=== PATIENT | male | born 1955 ===

== ENCOUNTER → 2021-09-05 10:06 | Outpatient (CLI) | payer OTHER, SELFPAY ==
[2021-09-05 13:11] LABS: COVID19 -Nasal RAPID Negative (Negative)
== END ==
PROVIDERS: Visit Provider Family Medicine Sleep Medicine
DX: Z20.822 Contact with and (suspected) exposure to COVID-19 (principal)
CPT/HCPCS: 87635; C9803

== ENCOUNTER → 2021-09-08 14:53 | Outpatient (CLI) | payer OTHER, SELFPAY ==
--- NOTE | 2021-09-08 | DI.NM.S_ITS ---
PROCEDURE: NM EXERCISE TREADMILL NON NUC COMPARISON: None. INDICATIONS: Other persistent atrial fibrillation FINDINGS: The patient exercised for 7 minutes and 34 seconds reaching 10.1 METs. Patient had atrial fibrillation with ventricular rates in the 90s at rest. 110% of maximum predicted heart rate reached and appropriate BP response to exercise. With exercise, there was no chest pain and no ischemic ECG changes. IMPRESSION: Low risk, normal treadmill ECG only stress test without angina and no ST changes. Above average exercise capacity (10.1 METs). Dictated by: Ezra Cazares MD on 09/09/2021 at 15:50 Approved by: Ezra Cazares MD on 09/09/2021 at 15:52
== END ==
PROVIDERS: Referring Provider Physician Assistant; Visit Provider Physician Assistant
DX: I48.19 Other persistent atrial fibrillation (principal)
CPT/HCPCS: 93017

== ENCOUNTER 2025-04-14 14:32 | Inpatient (IN) | payer OTHER, SELFPAY ==
[2025-04-14] VITALS (20 sets, daily range): BP systolic 103–171; BP diastolic 64–115; PULSE 77–125; RESP 6–42; TEMP 36.9; O2SAT 74–98; BMI 26.3
--- NOTE | 2025-04-14 14:38 | EKG_ITS ---
[address] [address] Test Date: 2025-04-14 Pat Name: Henry Barboza Department: [facility] Room: Gender: Male Purler: ALEKSANDR : 1955 Requested By: Order Number: [id number] Reading MD: Jason Neely Measurements Intervals [place] Rate: 120 P: [place]: QRS: -6 QRSD: 102 T: -15 QT: 332 QTc: 469 Interpretive Statements Atrial fibrillation with rapid ventricular response Electronically Signed On 04-14-2025 18:41:07 PDT by Jason Neely
--- NOTE | 2025-04-14 14:38 | DI.RAD.S_ITS ---
PROCEDURE: XR CHEST 1V INDICATIONS: Chest Pain TECHNIQUE: One view of the chest was acquired. COMPARISON: None. FINDINGS: Surgical changes and devices: None. Lungs and pleura: There is left basilar atelectasis without effusion. No pleural effusions or pneumothorax. Mediastinum: Mediastinal contours appear normal. Heart size is normal. Bones and chest wall: No suspicious bony lesions. Overlying soft tissues appear unremarkable. IMPRESSION: No acute cardiopulmonary abnormality is seen. Dictated by: Yvette Wilson M.D. on 04/14/2025 at 14:41 Approved by: Yvette Wilson M.D. on 04/14/2025 at 14:41
--- NOTE | 2025-04-14 14:41 | ED.CHESTPAIN ---
HPI - Chest Pain General Chief Complaint: Arrhythmia/Palpitations Stated Complaint: Afib sent by pcp Time Seen by Provider: 04/14/25 14:35 History of Present Illness HPI narrative: 69-year-old male for AFib status post ablation 3 years ago prior multiple cardioversions has been on sotalol 40 mg b.i.d. until January when he was cut back to 20 mg since then he has had 4 episodes of AFib RVR for which he has increase his sotalol dosing and that has rate controlled him. Unfortunately this morning has not rate controlled him and he was advised to come to the ER at this time. He is still on Pradaxa at this time. Other than what is stated 14 point review of system is negative. Related Data Allergies Allergy/AdvReac Type Severity Reaction Status Date / Time No Known Drug Allergies Allergy Verified 04/14/25 14:43 Review of Systems Review of Systems ROS Unobtainable: All systems reviewed & are unremarkable except as noted in HPI and below Exam Narrative Exam Narrative: GENERAL: [69] year old patient appears stated age. Well-developed patient, in mild distress. HEAD: Atraumatic. Normocephalic. EYES: Pupils equal round and reactive. Extraocular motions intact. No scleral icterus. No injection or drainage. ENT: Nose without bleeding, purulent drainage. Throat without erythema, tonsillar hypertrophy or exudate. Airway patent. NECK: Trachea midline. Non tender CARDIOVASCULAR: Tachycardic irregularly irregular rhythm without murmurs, gallops, or rubs. RESPIRATORY: Clear to auscultation. Breath sounds equal bilaterally. No wheezes, rales, or rhonchi. GASTROINTESTINAL: Abdomen soft, non-tender, nondistended. EXTREMITIES: No edema or joint tenderness. BACK: Nontender without deformity or crepitance. No flank tenderness. NEURO: AOx3. SKIN: No rash or erythema of visible areas Initial Vital Signs Initial Vital Signs: Vital Signs Pulse Rate 122 H 04/14/25 14:37 Respiratory Rate 20 04/14/25 14:37 Pulse Oximetry 98 04/14/25 14:37 Course Orders Ordered: ED Orders 04/14/25 14:38 XR chest 1V Stat EKG-12 Lead Stat 04/14/25 14:40 Complete Blood Count AUTO DIFF Stat Comprehensive Metabolic Panel Stat Lactate (Lactic Acid) Stat Lipase Stat Magnesium Stat NT-proBNP (BNP-Adult 18+) Stat PTT Partial Thromboplastin William Stat Prothrombin Time INR Stat Troponin & CK Cardiac Panel Stat 04/14/25 14:55 CT angio chest PE protocol Stat 04/14/25 15:00 TSH [Thyroid Stimulating Hormone] Stat 04/14/25 16:47 Troponin I Stat Discontinued Medications Aspirin (Aspirin 81 Mg Chew Tab) 324 mg PO NOW ONE Stop: 04/14/25 14:39 Last Admin: 04/14/25 15:10 Dose: 324 mg Documented By: KEAGAN Metoprolol Tartrate (Metoprolol Tartrate 5 Mg/5 Ml Inj) 5 mg IV Q5M [facility] Stop: 04/14/25 15:11 Last Admin: 04/14/25 15:33 Dose: 5 mg Documented By: Admin: 04/14/25 15:17 Dose: 5 mg Documented By: Admin: 04/14/25 15:10 Dose: 5 mg Documented By: KEAGAN Vital Signs Vital signs: Vital Signs - 8 hr 04/14/25 14:37 04/14/25 14:40 04/14/25 15:07 Temperature 98.4 F Pulse Rate 122 H 125 H 108 H Respiratory Rate 20 16 Blood Pressure 171/99 H Pulse Oximetry 98 98 93 Oxygen Delivery Method Room Air 04/14/25 15:20 04/14/25 15:20 04/14/25 15:25 Temperature Pulse Rate 101 H Respiratory Rate 29 H Blood Pressure 123/85 140/104 H Pulse Oximetry 96 Oxygen Delivery Method 04/14/25 15:25 04/14/25 15:30 04/14/25 15:30 Temperature Pulse Rate 101 H 103 H Respiratory Rate 27 H 26 H Blood Pressure 139/100 H Pulse Oximetry 94 96 Oxygen Delivery Method 04/14/25 15:36 04/14/25 15:36 04/14/25 15:41 Temperature Pulse Rate 106 H 94 H Respiratory Rate 18 23 Blood Pressure 142/115 H Pulse Oximetry 95 94 Oxygen Delivery Method 04/14/25 15:41 04/14/25 16:00 04/14/25 16:00 Temperature Pulse Rate 96 H Respiratory Rate 6 L Blood Pressure 133/86 140/69 Pulse Oximetry 94 Oxygen Delivery Method 04/14/25 16:33 04/14/25 16:35 04/14/25 16:35 Temperature Pulse Rate 96 H Respiratory Rate 21 Blood Pressure 152/80 H Pulse Oximetry 74 L 96 Oxygen Delivery Method 04/14/25 17:00 04/14/25 17:00 Temperature Pulse Rate 122 H Respiratory Rate 40 H Blood Pressure 155/86 H Pulse Oximetry 97 Oxygen Delivery Method MDM - Chest Pain Lab Data 04/14/25 14:40 04/14/25 14:40 Labs: Lab Results 04/14/25 04/14/25 04/14/25 Range/Units 14:40 15:00 16:47 WBC 7.2 (4.5-11.0) X10^3/uL RBC 5.44 (4.5-5.9) X10^6/uL Hgb 14.9 (13.5-17.5) g/dL Hct 44.6 (41-53) % MCV 82.0 (80-100) fL MCH 27.4 (26-34) PG MCHC 33.4 (30-36) % RDW 14.4 (11.6-14.8) % Plt Count 290 (150-400) X10^3/uL Neut % (Auto) 52.0 (50-75) % Lymph % (Auto) 36.2 (25-40) % [place] % (Auto) 8.7 (3-14) % Eos % (Auto) 2.2 (2-4) % Baso % (Auto) 0.9 (0-2) % Neut # (Auto) 3700 (7033-7677) /uL Lymph # (Auto) 2600 (6314-3413) /uL [place] # (Auto) 600 (0-900) /uL Eos # (Auto) 200 (0-450) /uL Baso # (Auto) 100 (0-100) /uL PT 12.3 (9.4-12.5) SECONDS INR 1.1 (0.9-1.3) APTT 51 H (25.1-36.5) SECONDS Sodium 138 (137-145) mmol/L Potassium 4.0 (3.4-5.1) mmol/L Chloride 107 (98-107) mmol/L Carbon Dioxide 23 (22-32) mmol/L BUN 19 (9-20) mg/dL Creatinine 1.10 (0.66-1.25) mg/dL Estimated GFR > 60 (>60) mL/min BUN/Creatinine Ratio 17.3 (6-22) Glucose 137 H (70-99) mg/dL Lactate 1.3 (0.7-2.1) mmol/L Calcium 9.3 (8.4-10.2) mg/dL Magnesium 1.9 (1.6-2.3) mg/dL Total Bilirubin 0.5 (0.2-1.3) mg/dL AST 23 (17-59) IU/L ALT 22 (<50) IU/L Alkaline Phosphatase 74 (38-126) U/L Total Creatine Kinase 65 (55-170) U/L Troponin I < 0.012 < 0.012 (0.01-0.034) ng/mL NT-Pro-B Natriuret Pep 522 H (<125) pg/mL Total Protein 7.5 (6.3-8.2) g/dL Albumin 4.3 (3.5-5.0) g/dL Globulin 3.2 (1.7-4.1) g/dL Albumin/Globulin Ratio 1.3 (1.0-2.8) Lipase 76 (23-300) U/L TSH 3.40 (0.47-4.68) uIU/mL Imaging Data CT scan - chest: Radiologist's Impression: [place] [address] CT Scan Report Signed Patient: Henry Barboza V MR#: [id number] : 1955 Acct:[id number] Age/Sex: 69 / M Date of Service: 04/14/25 Loc: ED Accession Number: [id number] Procedure: CT angio chest PE protocol Ordering Provider: Jaguar Philip D.O. PROCEDURE: CT ANGIO CHEST PE PROTOCOL INDICATIONS: chest pain TECHNIQUE: After the administration of intravenous contrast, 2 mm thick sections acquired from the pulmonary apices to the posterior costophrenic angles. 3-dimensional maximum intensity projection (MIP) coronal and sagittal reformats were then acquired through the thorax. For radiation dose reduction, the following was used: automated exposure control, adjustment of mA and/or kV according to patient size. COMPARISON: None. FINDINGS: Image quality: Diagnostic. Pulmonary arteries: Pulmonary arteries are normal in size, and demonstrate no intraluminal filling defects to suggest central pulmonary embolism. Lower Neck: No enlarged lymph nodes. Thyroid: No thyroid nodules which require sonographic follow up, per consensus guidelines. Axillae: No enlarged lymph nodes. Chest Wall: Unremarkable. Bones: Unremarkable. Lungs and Pleura: No pneumothorax or pleural effusions. No consolidation or suspicious nodules. Heart: Heart size is normal. No pericardial effusion. Thoracic Vessels: No aortic aneurysm. Mediastinum and Josee: No enlarged lymph nodes. Esophagus: There is a small hiatal hernia. Fluid is seen throughout the esophagus. Upper Abdomen: Visualized upper abdomen solid organs and bowel loops appear normal. IMPRESSION: No pulmonary embolus. No acute cardiopulmonary process. Small hiatal hernia with esophageal fluid, possibly contributing to the patient's chest pain. Dictated by: Yvette Wilson M.D. on 04/14/2025 at 14:12 Approved by: Yvette Wilson M.D. on 04/14/2025 at 14:18 ECG Data Interpretation: Afib RVR HR 120 PA undetermined QRS [address]-t wave change No previous EKG to compare MDM Narrative Medical decision making narrative: All lab work, vital signs, nurse triage note, medication list, previous ER visits, and all imaging studies reviewed. Two sets troponin normal BNP 522. Patient given Lopressor 5 mg IV x3 and the control the rate down to 100 exactly. Patient now started on a diltiazem drip the recommendation of Dr. Brandon surface room shop optician and to admit to surface room shop optician service. Case discussed with Dr. Neely who has graciously accepted the patient for inpatient admission. Discharge Plan Departure Patient Disposition: Admitted As Inpatient Clinical Impression: Atrial fibrillation with rapid ventricular response
[2025-04-14 14:49] LABS: Add Manual Diff / Slide Review NO; Hematocrit 44.6 % (41-53); Hemoglobin 14.9 g/dL (13.5-17.5); Lymphocytes Absolute Auto 2600 /uL (1100-4500); Mean Corpuscular HGB Conc 33.4 % (30-36); Mean Corpuscular Hemoglobin 27.4 PG (26-34); Mean Corpuscular Volume 82.0 fL (80-100); Platelet Count 290 X10^3/uL (150-400)
[2025-04-14 14:55] LABS: INR 1.1 (0.9-1.3); Prothrombin Time 12.3 SECONDS (9.4-12.5)
--- NOTE | 2025-04-14 14:55 | DI.CT.S_ITS ---
PROCEDURE: CT ANGIO CHEST PE PROTOCOL INDICATIONS: chest pain TECHNIQUE: After the administration of intravenous contrast, 2 mm thick sections acquired from the pulmonary apices to the posterior costophrenic angles. 3-dimensional maximum intensity projection (MIP) coronal and sagittal reformats were then acquired through the thorax. For radiation dose reduction, the following was used: automated exposure control, adjustment of mA and/or kV according to patient size. COMPARISON: None. FINDINGS: Image quality: Diagnostic. Pulmonary arteries: Pulmonary arteries are normal in size, and demonstrate no intraluminal filling defects to suggest central pulmonary embolism. Lower Neck: No enlarged lymph nodes. Thyroid: No thyroid nodules which require sonographic follow up, per consensus guidelines. Axillae: No enlarged lymph nodes. Chest Wall: Unremarkable. Bones: Unremarkable. Lungs and Pleura: No pneumothorax or pleural effusions. No consolidation or suspicious nodules. Heart: Heart size is normal. No pericardial effusion. Thoracic Vessels: No aortic aneurysm. Mediastinum and Josee: No enlarged lymph nodes. Esophagus: There is a small hiatal hernia. Fluid is seen throughout the esophagus. Upper Abdomen: Visualized upper abdomen solid organs and bowel loops appear normal. IMPRESSION: No pulmonary embolus. No acute cardiopulmonary process. Small hiatal hernia with esophageal fluid, possibly contributing to the patient's chest pain. Dictated by: Yvette Wilson M.D. on 04/14/2025 at 14:12 Approved by: Yvette Wilson M.D. on 04/14/2025 at 14:18
[2025-04-14 14:57] LABS: PTT Partial Thromboplastin Tim 51 SECONDS (25.1-36.5)
[2025-04-14 14:59] LABS: Alanine Aminotransferase 22 IU/L (<50); Albumin 4.3 g/dL (3.5-5.0); Albumin Globulin Ratio 1.3 (1.0-2.8); Alkaline Phosphatase 74 U/L (38-126); Blood Urea Nitrogen 19 mg/dL (9-20); Calcium 9.3 mg/dL (8.4-10.2); Carbon Dioxide 23 mmol/L (22-32); Chloride 107 mmol/L (98-107); Creatine Kinase 65 U/L (55-170); Estimated Glomerular Filt Rate > 60 mL/min (>60); Globulin 3.2 g/dL (1.7-4.1); Glucose 137 mg/dL (70-99); HEMOLYSIS < 15 (0-50); Lipase 76 U/L (23-300); Magnesium 1.9 mg/dL (1.6-2.3); Potassium 4.0 mmol/L (3.4-5.1); Sodium 138 mmol/L (137-145); Total Protein 7.5 g/dL (6.3-8.2)
[2025-04-14 15:00] LABS: Lactate (Lactic Acid) 1.3 mmol/L (0.7-2.1)
[2025-04-14] MEDS: ASPIRIN 81 MG CHEW TAB 324 MG PO (15:10)
[2025-04-14] MEDS: METOPROLOL TARTRATE 5 MG/5 ML INJ IV ×3 (15:10→15:33)
[2025-04-14 15:11] LABS: NT-proBNP (BNP-Adult 18+) 522 pg/mL (<125); Troponin I < 0.012 ng/mL (0.01-0.034)
[2025-04-14 15:53] LABS: Thyroid Stimulating Hormone 3.40 uIU/mL (0.47-4.68)
[2025-04-14 17:18] LABS: Troponin I < 0.012 ng/mL (0.01-0.034)
--- NOTE | 2025-04-14 17:56 | P.HP_ITS ---
History of Present Illness History of Present Illness Date Patient Seen: 04/14/25 Time Patient Seen: 17:56 Chief complaint: Afib sent by pcp Narrative: This is a 69-year-old male with a history of hyperlipidemia and atrial fibrillation who presents with 10 hours of palpitations consistent with his previous history of AFib RVR. He has had 2 cardioversions and a previous ablation for his AFib and has a very consistent palpitation sensation when he leaves sinus rhythm and goes into AFib. Usually he will see this respond/resolve within a few hours by taking the 40 mg dose of his sotalol. He used to be on 40 mg twice a day but his dose was decreased to 20 mg twice a day when his AFib episodes seemed to be under control. He was shopping with his partner this morning when he felt the palpitations return. In the ED he received 5 mg of Lopressor IV 3 times with a heart rate returning to 100, after presenting with a heart rate 120-130. His metabolic lab numbers including TSH are all normal. The troponin and EKG show no evidence of ischemia. After discussion with Cardiology he is now on a 5 milligram/hour IV diltiazem drip and will be monitored overnight. [facility] Medical History (Updated 04/14/25 @ 18:16 by Thalia Neely MD) History of cardioversion HLD (hyperlipidemia) Atrial fibrillation with rapid ventricular response Surgical History S/P ablation of atrial fibrillation Family History (Updated 04/14/25 @ 18:17 by Thalia Neely MD) Mother H/O aortic valve replacement with porcine valve Social History (Updated 04/14/25 @ 18:18 by Thalia Neely MD) alcohol intake: former Comment: Nonsmoker Meds Home Medications and Allergies Allergies Allergy/AdvReac Type Severity Reaction Status Date / Time No Known Drug Allergies Allergy Verified 04/14/25 14:43 Review of Systems Review of Systems Narrative: Positive for palpitations. Negative shortness breast, chest pain, nausea, vomiting, abdominal pain, coughing, bleeding, rashes, dysuria, joint pain, new allergies, headaches. Exam Vital Signs (past 8 hours): - 04/14/25 14:37 04/14/25 14:40 04/14/25 15:07 Temperature 98.4 F Pulse Rate 122 H 125 H 108 H Respiratory Rate 20 16 Blood Pressure 171/99 H Pulse Oximetry 98 98 93 Oxygen Delivery Method Room Air 04/14/25 15:20 04/14/25 15:20 04/14/25 15:25 Temperature Pulse Rate 101 H Respiratory Rate 29 H Blood Pressure 123/85 140/104 H Pulse Oximetry 96 Oxygen Delivery Method 04/14/25 15:25 04/14/25 15:30 04/14/25 15:30 Temperature Pulse Rate 101 H 103 H Respiratory Rate 27 H 26 H Blood Pressure 139/100 H Pulse Oximetry 94 96 Oxygen Delivery Method 04/14/25 15:36 04/14/25 15:36 04/14/25 15:41 Temperature Pulse Rate 106 H 94 H Respiratory Rate 18 23 Blood Pressure 142/115 H Pulse Oximetry 95 94 Oxygen Delivery Method 04/14/25 15:41 04/14/25 16:00 04/14/25 16:00 Temperature Pulse Rate 96 H Respiratory Rate 6 L Blood Pressure 133/86 140/69 Pulse Oximetry 94 Oxygen Delivery Method 04/14/25 16:33 04/14/25 16:35 04/14/25 16:35 Temperature Pulse Rate 96 H Respiratory Rate 21 Blood Pressure 152/80 H Pulse Oximetry 74 L 96 Oxygen Delivery Method 04/14/25 17:00 04/14/25 17:00 Temperature Pulse Rate 122 H Respiratory Rate 40 H Blood Pressure 155/86 H Pulse Oximetry 97 Oxygen Delivery Method Oxygen Delivery Method Room Air Narrative Exam Narrative: Alert and oriented x3. No apparent distress. Pupils are equally round and reactive to light and accommodation. Extraocular muscles are intact. Sclerae are pink and nonicteric. There is no thyromegaly. JVD is less than 6 cm. No carotid bruits are heard. No lymph nodes are felt head, neck, supraclavicular area. Heart is irregularly irregular without murmur. Lungs are clear to auscultation bilaterally. Abdomen is soft, bowel sounds positive, nontender, no organomegaly. Extremities have no ankle edema skin has no rash or jaundice. Neurologic exam: Motor function is 5/5 throughout. Cranial nerves 2-12 test intact. There is no tremor. DTRs are symmetric. Objective Labs 04/14/25 14:40 04/14/25 14:40 Labs: Laboratory Results - last 24 hr 04/14/25 04/14/25 04/14/25 14:40 15:00 16:47 WBC 7.2 RBC 5.44 Hgb 14.9 Hct 44.6 MCV 82.0 MCH 27.4 MCHC 33.4 RDW 14.4 Plt Count 290 Neut % (Auto) 52.0 Lymph % (Auto) 36.2 [place] % (Auto) 8.7 Eos % (Auto) 2.2 Baso % (Auto) 0.9 Neut # (Auto) 3700 Lymph # (Auto) 2600 [place] # (Auto) 600 Eos # (Auto) 200 Baso # (Auto) 100 PT 12.3 INR 1.1 APTT 51 H Sodium 138 Potassium 4.0 Chloride 107 Carbon Dioxide 23 BUN 19 Creatinine 1.10 Estimated GFR > 60 BUN/Creatinine Ratio 17.3 Glucose 137 H Lactate 1.3 Calcium 9.3 Magnesium 1.9 Total Bilirubin 0.5 AST 23 ALT 22 Alkaline Phosphatase 74 Total Creatine Kinase 65 Troponin I < 0.012 < 0.012 NT-Pro-B Natriuret Pep 522 H Total Protein 7.5 Albumin 4.3 Globulin 3.2 Albumin/Globulin Ratio 1.3 Lipase 76 TSH 3.40 Assessment & Plan Assessment & Plan narrative: This is a 69-year-old male with a history of hyperlipidemia and atrial fibrillation who presents with 10 hours of palpitations consistent with his previous history of AFib RVR. Recurrent Atrial fibrillation with rapid ventricular response, present on admission. Active. -symptoms began around 8:00 a.m. today and did not resolve as they usually do with a doubling of his home sotalol dose. -required 5 mg x 3 metoprolol and is now on diltiazem 5 milligram/hour drip. -was discussed with Dr. Brandon who recommended overnight monitoring and diltiazem drip. -TSH 3.4, metabolic panel/electrolytes normal. -continue sotalol and anticoagulation with Pradaxa. Hyperlipidemia -continue atorvastatin DVT prevention -Pradaxa His backup decision maker is his partner Rose. Time-Based Coding :: [TOTAL MINUTES] spent with patient and on the chart (including review of chart, obtaining history, exam, reviewing outside data, placing orders, documenting exam and treatment plan, and counseling patient) on [DATE].
[2025-04-14] MEDS: SODIUM CHLORIDE 0.9% 1,000 ML 100 ML IV (18:49)
--- NOTE | 2025-04-14 19:30 | PC.NURSE ---
Pt arrived to ICU from ED 183. Assisted pt in to bed, connected to monitor, and reviewed orders. Diltiazem titrated per order for HR, see MAR. Pt working with float nurse during remainder of dayshift.
[2025-04-14 20:01] LABS: MRSA (Nasal) PCR NOT DETECTED (Not Detect)
[2025-04-14] MEDS: ATORVASTATIN 20 MG TABLET PO (21:00)
[2025-04-14] MEDS: SOTALOL 80 MG TABLET 40 MG PO (21:00)
[2025-04-14] MEDS: DABIGATRAN 75 MG CAPSULE 150 MG PO (21:00)
[2025-04-15] VITALS (14 sets, daily range): BP systolic 115–149; BP diastolic 66–91; PULSE 64–156; RESP 13–35; O2SAT 93–97
[2025-04-15] MEDS: SODIUM CHLORIDE 0.9% 1,000 ML 100 ML IV (04:25)
--- NOTE | 2025-04-15 07:36 | P.DS_ITS ---
History of Present Illness History of Present Illness Chief complaint: Afib sent by pcp Narrative: This is a 69-year-old male with a history of hyperlipidemia and atrial fibrillation who presents with 10 hours of palpitations consistent with his previous history of AFib RVR. He has had 2 cardioversions and a previous ablation for his AFib and has a very consistent palpitation sensation when he leaves sinus rhythm and goes into AFib. Usually he will see this respond/resolve within a few hours by taking the 40 mg dose of his sotalol. He used to be on 40 mg twice a day but his dose was decreased to 20 mg twice a day when his AFib episodes seemed to be under control. He was shopping with his partner this morning when he felt the palpitations return. In the ED he received 5 mg of Lopressor IV 3 times with a heart rate returning to 100, after presenting with a heart rate 120-130. His metabolic lab numbers including TSH are all normal. The troponin and EKG show no evidence of ischemia. After discussion with Cardiology he is now on a 5 milligram/hour IV diltiazem drip and will be monitored overnight. Discharge Providers Provider Date of admission: 04/14/25 17:49 Discharge provider: Thalia Neely MD Summary Hospital Course Hospital Course: This is a 69-year-old male with a history of hyperlipidemia and atrial fibrillation who presents with 10 hours of palpitations consistent with his previous history of AFib RVR. He has had 2 cardioversions and a previous ablation for his AFib and has a very consistent palpitation sensation when he leaves sinus rhythm and goes into AFib. Usually he will see this respond/resolve within a few hours by taking the 40 mg dose of his sotalol. He used to be on 40 mg twice a day but his dose was decreased to 20 mg twice a day when his AFib episodes seemed to be under control. He was shopping with his partner this morning when he felt the palpitations return. In the ED he received 5 mg of Lopressor IV 3 times with a heart rate returning to 100, after presenting with a heart rate 120-130. His metabolic lab numbers including TSH are all normal. The troponin and EKG show no evidence of ischemia. After discussion with Cardiology he is now on a 5 milligram/hour IV diltiazem drip and will be monitored overnight. [facility] Medical History (Updated 04/14/25 @ 18:16 by Thalia Neely MD) History of cardioversion HLD (hyperlipidemia) Atrial fibrillation with rapid ventricular response Surgical History S/P ablation of atrial fibrillation Family History (Updated 04/14/25 @ 18:17 by Thalia Neely MD) Mother H/O aortic valve replacement with porcine valve Social History (Updated 04/14/25 @ 18:18 by Thalia Neely MD) alcohol intake: former Comment: Nonsmoker Meds Home Medications and Allergies Allergies Allergy/AdvReac Type Severity Reaction Status Date / Time No Known Drug Allergies Allergy Verified 04/14/25 14:43 Review of Systems Review of Systems Narrative: Positive for palpitations. Negative shortness breast, chest pain, nausea, vomiting, abdominal pain, coughing, bleeding, rashes, dysuria, joint pain, new allergies, headaches. Exam Vital Signs (past 8 hours): - 04/14/2514:37 04/14/2514:40 04/14/2515:07 Temperature 98.4 F Pulse Rate 122 H 125 H 108 H Respiratory Rate 20 16 Blood Pressure 171/99 H Pulse Oximetry 98 98 93 Oxygen Delivery Method Room Air 04/14/2515:20 04/14/2515:20 04/14/2515:25 Temperature Pulse Rate 101 H Respiratory Rate 29 H Blood Pressure 123/85 140/104 H Pulse Oximetry 96 Oxygen Delivery Method 04/14/2515:25 04/14/2515:30 04/14/2515:30 Temperature Pulse Rate 101 H 103 H Respiratory Rate 27 H 26 H Blood Pressure 139/100 H Pulse Oximetry 94 96 Oxygen Delivery Method 04/14/2515:36 04/14/2515:36 04/14/2515:41 Temperature Pulse Rate 106 H 94 H Respiratory Rate 18 23 Blood Pressure 142/115 H Pulse Oximetry 95 94 Oxygen Delivery Method 04/14/2515:41 04/14/2516:00 04/14/2516:00 Temperature Pulse Rate 96 H Respiratory Rate 6 L Blood Pressure 133/86 140/69 Pulse Oximetry 94 Oxygen Delivery Method 04/14/2516:33 04/14/2516:35 04/14/2516:35 Temperature Pulse Rate 96 H Respiratory Rate 21 Blood Pressure 152/80 H Pulse Oximetry 74 L 96 Oxygen Delivery Method 04/14/2517:00 04/14/2517:00 Temperature Pulse Rate 122 H Respiratory Rate 40 H Blood Pressure 155/86 H Pulse Oximetry 97 Oxygen Delivery Method Oxygen Delivery Method Room Air Narrative Exam Narrative: Alert and oriented x3. No apparent distress. Pupils are equally round and reactive to light and accommodation. Extraocular muscles are intact. Sclerae are pink and nonicteric. There is no thyromegaly. JVD is less than 6 cm. No carotid bruits are heard. No lymph nodes are felt head, neck, supraclavicular area. Heart is irregularly irregular without murmur. Lungs are clear to auscultation bilaterally. Abdomen is soft, bowel sounds positive, nontender, no organomegaly. Extremities have no ankle edema skin has no rash or jaundice. Neurologic exam: Motor function is 5/5 throughout. Cranial nerves 2-12 test intact. There is no tremor. DTRs are symmetric. Objective Labs 04/14/25 14:40 04/14/25 14:40 Labs: Laboratory Results - last 24 hr 04/14/25 04/14/25 04/14/25 14:40 15:00 16:47 WBC 7.2 RBC 5.44 Hgb 14.9 Hct 44.6 MCV 82.0 MCH 27.4 MCHC 33.4 RDW 14.4 Plt Count 290 Neut % (Auto) 52.0 Lymph % (Auto) 36.2 [place] % (Auto) 8.7 Eos % (Auto) 2.2 Baso % (Auto) 0.9 Neut # (Auto) 3700 Lymph # (Auto) 2600 [place] # (Auto) 600 Eos # (Auto) 200 Baso # (Auto) 100 PT 12.3 INR 1.1 APTT 51 H Sodium 138 Potassium 4.0 Chloride 107 Carbon Dioxide 23 BUN 19 Creatinine 1.10 Estimated GFR > 60 BUN/Creatinine Ratio 17.3 Glucose 137 H Lactate 1.3 Calcium 9.3 Magnesium 1.9 Total Bilirubin 0.5 AST 23 ALT 22 Alkaline Phosphatase 74 Total Creatine Kinase 65 Troponin I < 0.012 < 0.012 NT-Pro-B Natriuret Pep 522 H Total Protein 7.5 Albumin 4.3 Globulin 3.2 Albumin/Globulin Ratio 1.3 Lipase 76 TSH 3.40 Assessment & Plan Assessment & Plan narrative: This is a 69-year-old male with a history of hyperlipidemia and atrial fibrillation who presents with 10 hours of palpitations consistent with his previous history of AFib RVR. Recurrent Atrial fibrillation with rapid ventricular response, present on admission. Active. -symptoms began around 8:00 a.m. today and did not resolve as they usually do with a doubling of his home sotalol dose. -required 5 mg x 3 metoprolol and is now on diltiazem 5 milligram/hour drip. -was discussed with Dr. Brandon who recommended overnight monitoring and diltiazem drip. -TSH 3.4, metabolic panel/electrolytes normal. -continue sotalol and anticoagulation with Pradaxa. Hyperlipidemia -continue atorvastatin DVT prevention -Pradaxa His backup decision maker is his partner Rose. Exam Vital Signs (past 8 hours): - 04/15/25 00:00 04/15/25 01:00 04/15/25 02:00 Pulse Rate 80 84 91 H Respiratory Rate 23 26 H 29 H Blood Pressure 115/76 117/70 140/73 Pulse Oximetry 96 95 97 Oxygen Flow Rate 0 0 0 04/15/25 03:00 04/15/25 04:00 04/15/25 05:00 Pulse Rate 95 H 97 H 96 H Respiratory Rate 35 H 19 18 Blood Pressure 134/77 119/83 139/81 Pulse Oximetry 95 93 Oxygen Flow Rate 0 0 04/15/25 06:00 Pulse Rate 98 H Respiratory Rate Blood Pressure 139/91 H Pulse Oximetry Oxygen Flow Rate Oxygen Delivery Method Room Air Oxygen Flow Rate 0 Objective Labs 04/14/25 14:40 04/14/25 14:40 Labs: Laboratory Results - last 24 hr 04/14/25 04/14/25 04/14/25 14:40 15:00 16:47 WBC 7.2 RBC 5.44 Hgb 14.9 Hct 44.6 MCV 82.0 MCH 27.4 MCHC 33.4 RDW 14.4 Plt Count 290 Neut % (Auto) 52.0 Lymph % (Auto) 36.2 [place] % (Auto) 8.7 Eos % (Auto) 2.2 Baso % (Auto) 0.9 Neut # (Auto) 3700 Lymph # (Auto) 2600 [place] # (Auto) 600 Eos # (Auto) 200 Baso # (Auto) 100 PT 12.3 INR 1.1 APTT 51 H Sodium 138 Potassium 4.0 Chloride 107 Carbon Dioxide 23 BUN 19 Creatinine 1.10 Estimated GFR > 60 BUN/Creatinine Ratio 17.3 Glucose 137 H Lactate 1.3 Calcium 9.3 Magnesium 1.9 Total Bilirubin 0.5 AST 23 ALT 22 Alkaline Phosphatase 74 Total Creatine Kinase 65 Troponin I < 0.012 < 0.012 NT-Pro-B Natriuret Pep 522 H Total Protein 7.5 Albumin 4.3 Globulin 3.2 Albumin/Globulin Ratio 1.3 Lipase 76 TSH 3.40 Nasal Screen MRSA (PCR) 04/14/25 18:43 WBC RBC Hgb Hct MCV MCH MCHC RDW Plt Count Neut % (Auto) Lymph % (Auto) [place] % (Auto) Eos % (Auto) Baso % (Auto) Neut # (Auto) Lymph # (Auto) [place] # (Auto) Eos # (Auto) Baso # (Auto) PT INR APTT Sodium Potassium Chloride Carbon Dioxide BUN Creatinine Estimated GFR BUN/Creatinine Ratio Glucose Lactate Calcium Magnesium Total Bilirubin AST ALT Alkaline Phosphatase Total Creatine Kinase Troponin I NT-Pro-B Natriuret Pep Total Protein Albumin Globulin Albumin/Globulin Ratio Lipase TSH Nasal Screen MRSA (PCR) Not detected PFSH Medical History (Updated 04/14/25 @ 18:16 by Thalia Neely MD) History of cardioversion HLD (hyperlipidemia) Atrial fibrillation with rapid ventricular response Surgical History S/P ablation of atrial fibrillation Family History (Updated 04/14/25 @ 18:17 by Thalia Neely MD) Mother H/O aortic valve replacement with porcine valve Social History (Updated 04/14/25 @ 18:18 by Thalia Neely MD) household members: spouse Smoking Status: Never smoker alcohol intake: never Discharge Plan Discharge orders & Medications Prescriptions: No Action atorvastatin 20 mg tablet 20 mg PO DAILY sotalol 80 mg tablet 20 mg PO Q12H dabigatran etexilate 150 mg capsule 150 mg PO .qd
[2025-04-15] MEDS: DABIGATRAN 75 MG CAPSULE 150 MG PO (08:44)
[2025-04-15] MEDS: SOTALOL 80 MG TABLET 40 MG PO (08:44)
--- NOTE | 2025-04-15 08:57 | DI.ECHO.S_ITS ---
[facility] : : [address] : : [place] : : [id number] : : Phone: [phone] Echocardiogram Report + + :Name: ELSIE HIGGINS V Study Date: 04/15/2025 Height: 67 in : :[facility] ReadingLocation: Weight: 168 lb : : Gender: Male BSA: 1.9 m2 : :: 1955 Age: 69 yrs BP: 123/67 mmHg: :Reason For Study: ATRIAL FIBRILLATION : :Ordering Physician: KIRAN, : :FARAZ Davalos Performed By: Nico Johnson : :Referring: FARAZ BECK : + + Interpretation Summary The patient was in atrial fibrillation with heart rates between 84-111 bpm during the exam. Left ventricular wall thickness is mildly increased. The left ventricle is hyperdynamic. Diastolic function could not be accurately assessed due to atrial fibrillation. The right ventricle is normal in size and function. No significant valvular abnormalities. Pulmonary artery pressures cannot be estimated because of the lack of a measurable TR jet velocity. Procedure: A two-dimensional transthoracic echocardiogram with color flow and Doppler was performed. A contrast injection of Definity was performed to improve assessment of LV function. The study quality was technically adequate. There is no prior echocardiogram noted for this patient. The patient was in atrial fibrillation with heart rates between 84-111 bpm during the exam. Left Ventricle: The left ventricle is normal in size. Left ventricular wall thickness is mildly increased. There is no ventricular septal defect visualized. The left ventricle is hyperdynamic. There are no focal wall motion abnormalities. Diastolic function could not be accurately assessed due to atrial fibrillation. Right Ventricle: The right ventricle is normal in size and function. Atria: The left atrial size is normal. Right atrial size is normal. The interatrial septum is not well visualized. Mitral Valve: The mitral valve leaflets are mildly calcified. There is no mitral regurgitation noted. Aortic Valve: The aortic valve is trileaflet. The aortic valve is mildly calcified. The aortic valve opens well. There is no aortic valve stenosis. There is trace aortic regurgitation. Tricuspid Valve: The tricuspid valve is not well visualized, but is grossly normal. There is a trace or physiologic amount of tricuspid regurgitation. Pulmonary artery pressures cannot be estimated because of the lack of a measurable TR jet velocity. Pulmonic Valve: The pulmonic valve is not well visualized. There is no pulmonic valvular regurgitation. Great Vessels: The aortic root is normal size. The dimensions of the ascending aorta are normal. The pulmonary artery is not well visualized, but is probably normal size. The inferior vena cava was not visualized. Pericardium/ Pleura There is no pericardial effusion. MMode/2D Measurements & Calculations LVIDd: 4.3 cm LVOT diam: 1.9 cm LVIDs: 3.2 cm Ao root diam: 3.3 cm FS: 25.6 % asc Aorta Diam: 3.2 cm EPSS: 0.68 cm Ao Arch Diam (Prox Trans): 1.6 cm IVSd: 1.1 cm LVPWd: 1.1 cm LV guaman. diameter/BSA (cm/m^2): 2.3 LV sys. diameter/BSA (cm/m^2): 1.7 LA A2 area: 22.4 cm2 RA long axis: 3.8 cm LA A4 area: 21.9 cm2 RA area: 11.8 cm2 LA length (vol): 6.4 cm RA vol: 31.3 ml LA vol: 65.4 ml RA : 16.7 ml/m2 LA vol index: 34.8 ml/m2 RVD1 (basal): 3.5 cm RVD2 (mid): 2.8 cm TAPSE: 1.9 cm Doppler Measurements & Calculations Ao V2 max: 123.7 cm/sec LVOT Max Raman: 95.1 cm/sec Ao V2 mean: 83.3 cm/sec LV V1 max P.6 mmHg Ao max P.1 mmHg LV V1 VTI: 16.4 cm Ao mean P.1 mmHg MELISSA(I,D): 2.5 cm2 Ao V2 VTI: 18.4 cm MELISSA(V,D): 2.2 cm2 sev ratio: 0.89 MELISSA indexed to BSA (cm^2/m^2): 1.3 MV E max raman: 80.6 cm/sec PA V2 max: 78.7 cm/sec MV A max raman: 35.6 cm/sec PA V2 mean: 61.3 cm/sec MV E/A: 2.3 PA mean P.6 mmHg Med Peak E' Raman: 6.9 cm/sec PA pr(Accel): 53.3 mmHg E/E' med: 11.7 Lat Peak E' Raman: 11.3 cm/sec E/E' lat: 7.1 E/e' average: 9.4 MV dec time: 0.21 sec SV(OT): 46.3 ml Reading Physician:06:03 PM
--- NOTE | 2025-04-15 10:13 | PM.PN.1 ---
Subjective Subjective Date Patient Seen: 04/15/25 Interval history: This is a 69-year-old male with a history of hyperlipidemia and atrial fibrillation who presents with 10 hours of palpitations consistent with his previous history of AFib RVR. He has had 2 cardioversions and a previous ablation for his AFib and has a very consistent palpitation sensation when he leaves sinus rhythm and goes into AFib. Usually he will see this respond/resolve within a few hours by taking the 40 mg dose of his sotalol. He used to be on 40 mg twice a day but his dose was decreased to 20 mg twice a day when his AFib episodes seemed to be under control. He was shopping with his partner this morning when he felt the palpitations return. In the ED he received 5 mg of Lopressor IV 3 times with a heart rate returning to 100, after presenting with a heart rate 120-130. His metabolic lab numbers including TSH are all normal. The troponin and EKG show no evidence of ischemia. After discussion with Cardiology he is now on a 5 milligram/hour IV diltiazem drip and will be monitored overnight. Narrative Exam Narrative: Alert and oriented x3. No apparent distress. Pupils are equally round and reactive to light and accommodation. Extraocular muscles are intact. Sclerae are pink and nonicteric. There is no thyromegaly. JVD is less than 6 cm. No carotid bruits are heard. No lymph nodes are felt head, neck, supraclavicular area. Heart is irregularly irregular without murmur. Lungs are clear to auscultation bilaterally. Abdomen is soft, bowel sounds positive, nontender, no organomegaly. Extremities have no ankle edema skin has no rash or jaundice. Neurologic exam: Motor function is 5/5 throughout. Cranial nerves 2-12 test intact. There is no tremor. DTRs are symmetric. Assessment & Plan Assessment & Plan narrative: This is a 69-year-old male with a history of hyperlipidemia and atrial fibrillation who presents with 10 hours of palpitations consistent with his previous history of AFib RVR. Recurrent Atrial fibrillation with rapid ventricular response, present on admission. Active. -symptoms began around 8:00 a.m. today and did not resolve as they usually do with a doubling of his home sotalol dose. -required 5 mg x 3 metoprolol and is now on diltiazem 5 milligram/hour drip. -was discussed with Dr. Brandon who recommended overnight monitoring and diltiazem drip. -TSH 3.4, metabolic panel/electrolytes normal. -continue sotalol and anticoagulation with Pradaxa. Hyperlipidemia -continue atorvastatin DVT prevention -Pradaxa His backup decision maker is his partner Rose. Exam Vital Signs (past 8 hours): - 04/15/25 03:00 04/15/25 04:00 04/15/25 05:00 Pulse Rate 95 H 97 H 96 H Respiratory Rate 35 H 19 18 Blood Pressure 134/77 119/83 139/81 Pulse Oximetry 95 93 Oxygen Delivery Method Oxygen Flow Rate 0 0 04/15/25 06:00 04/15/25 07:00 04/15/25 08:00 Pulse Rate 98 H 121 H Respiratory Rate 13 Blood Pressure 139/91 H 149/78 H Pulse Oximetry 96 Oxygen Delivery Method Room Air Oxygen Flow Rate 0 Oxygen Delivery Method Room Air Oxygen Flow Rate 0 Objective Labs 04/14/25 14:40 04/14/25 14:40 Labs: Laboratory Results - last 24 hr 04/14/25 04/14/25 04/14/25 14:40 15:00 16:47 WBC 7.2 RBC 5.44 Hgb 14.9 Hct 44.6 MCV 82.0 MCH 27.4 MCHC 33.4 RDW 14.4 Plt Count 290 Neut % (Auto) 52.0 Lymph % (Auto) 36.2 [place] % (Auto) 8.7 Eos % (Auto) 2.2 Baso % (Auto) 0.9 Neut # (Auto) 3700 Lymph # (Auto) 2600 [place] # (Auto) 600 Eos # (Auto) 200 Baso # (Auto) 100 PT 12.3 INR 1.1 APTT 51 H Sodium 138 Potassium 4.0 Chloride 107 Carbon Dioxide 23 BUN 19 Creatinine 1.10 Estimated GFR > 60 BUN/Creatinine Ratio 17.3 Glucose 137 H Lactate 1.3 Calcium 9.3 Magnesium 1.9 Total Bilirubin 0.5 AST 23 ALT 22 Alkaline Phosphatase 74 Total Creatine Kinase 65 Troponin I < 0.012 < 0.012 NT-Pro-B Natriuret Pep 522 H Total Protein 7.5 Albumin 4.3 Globulin 3.2 Albumin/Globulin Ratio 1.3 Lipase 76 TSH 3.40 Nasal Screen MRSA (PCR) 04/14/25 18:43 WBC RBC Hgb Hct MCV MCH MCHC RDW Plt Count Neut % (Auto) Lymph % (Auto) [place] % (Auto) Eos % (Auto) Baso % (Auto) Neut # (Auto) Lymph # (Auto) [place] # (Auto) Eos # (Auto) Baso # (Auto) PT INR APTT Sodium Potassium Chloride Carbon Dioxide BUN Creatinine Estimated GFR BUN/Creatinine Ratio Glucose Lactate Calcium Magnesium Total Bilirubin AST ALT Alkaline Phosphatase Total Creatine Kinase Troponin I NT-Pro-B Natriuret Pep Total Protein Albumin Globulin Albumin/Globulin Ratio Lipase TSH Nasal Screen MRSA (PCR) Not detected PFSH Medical History (Updated 04/14/25 @ 18:16 by Thalia Neely MD) History of cardioversion HLD (hyperlipidemia) Atrial fibrillation with rapid ventricular response Surgical History S/P ablation of atrial fibrillation Family History (Updated 04/14/25 @ 18:17 by Thalia Neely MD) Mother H/O aortic valve replacement with porcine valve Social History (Updated 04/14/25 @ 18:18 by Thalia Neely MD) household members: spouse Smoking Status: Never smoker alcohol intake: never Assessment & Plan Time-Based Coding :: [TOTAL MINUTES] spent with patient and on the chart (including review of chart, obtaining history, exam, reviewing outside data, placing orders, documenting exam and treatment plan, and counseling patient) on [DATE].
--- NOTE | 2025-04-15 15:22 | P.DS_ITS ---
History of Present Illness History of Present Illness Chief complaint: Afib sent by pcp Narrative: This is a 69-year-old male with a history of hyperlipidemia and atrial fibrillation who presents with 10 hours of palpitations consistent with his previous history of AFib RVR. He has had 2 cardioversions and a previous ablation for his AFib and has a very consistent palpitation sensation when he leaves sinus rhythm and goes into AFib. Usually he will see this respond/resolve within a few hours by taking the 40 mg dose of his sotalol. He used to be on 40 mg twice a day but his dose was decreased to 20 mg twice a day when his AFib episodes seemed to be under control. He was shopping with his partner this morning when he felt the palpitations return. In the ED he received 5 mg of Lopressor IV 3 times with a heart rate returning to 100, after presenting with a heart rate 120-130. His metabolic lab numbers including TSH are all normal. The troponin and EKG show no evidence of ischemia. After discussion with Cardiology he is now on a 5 milligram/hour IV diltiazem drip and will be monitored overnight. Discharge Providers Provider Date of admission: 04/14/25 17:49 Discharge Date: 04/15/25 Discharge provider: Thalia Neely MD Summary Hospital Course Hospital Course: This is a 69-year-old male with a history of hyperlipidemia and atrial fibrillation who presented with 10 hours of palpitations consistent with his previous history of AFib RVR. Recurrent Atrial fibrillation with rapid ventricular response -symptoms began around 8:00 a.m. and did not resolve as they usually do with a doubling of his home sotalol dose. -required 5 mg x 3 metoprolol in the ED and then placed on diltiazem 5 milligram/hour drip. -was discussed with Dr. Brandon who recommended overnight monitoring and diltiazem drip. -TSH 3.4, metabolic panel/electrolytes normal. -continue sotalol and anticoagulation with Pradaxa. Hyperlipidemia -continue atorvastatin DVT prevention -Pradaxa In summary, the diltiazem drip was turned off around midnight but around 8-9 a.m. today the heart rate climbed back again into the 120+ range so he was started back on diltiazem 5 milligrams/hour IV which controlled his heart rate quite well. He then spontaneously converted, mid day back to sinus rhythm. He has sustained that rhythm for several hours and is eager to go home. His echocardiogram report is still pending. He has no further symptoms. He will continue on the increased dose of sotalol, 40 mg b.i.d., until he sees his field horticultural specialty grower soon. We will need to contact him if the echocardiogram shows changes. Status at Discharge Cognitive/behavioral status at discharge: at baseline, oriented Functional status at discharge: independent ambulation Overall status at discharge: patient is back to baseline Time Spent with Patient Time spent: Greater than 30 minutes Exam Vital Signs (past 8 hours): - 04/15/25 08:00 04/15/25 10:00 04/15/25 10:30 Pulse Rate 121 H 139 H 102 H Respiratory Rate 13 Blood Pressure 149/78 H 123/67 120/79 Pulse Oximetry 96 Oxygen Delivery Method Oxygen Flow Rate 0 04/15/25 11:00 04/15/25 11:00 04/15/25 11:30 Pulse Rate 98 H 98 H Respiratory Rate Blood Pressure 120/66 115/84 Pulse Oximetry Oxygen Delivery Method Room Air Oxygen Flow Rate 04/15/25 12:00 04/15/25 12:30 04/15/25 15:00 Pulse Rate 156 H 64 Respiratory Rate Blood Pressure 140/73 137/75 Pulse Oximetry Oxygen Delivery Method Room Air Oxygen Flow Rate Oxygen Delivery Method Room Air Oxygen Flow Rate 0 Narrative Exam Narrative: Alert and oriented x3. No apparent distress. On my initial visit the heart exam is irregularly tachycardic without murmur. On follow-up visit he is back in sinus rhythm with regular rate and rhythm on exam. Lungs are clear to auscultation Bilaterally. There is no ankle edema. Objective Labs 04/14/25 14:40 04/14/25 14:40 Labs: Laboratory Results - last 24 hr 04/14/25 04/14/25 04/14/25 15:00 16:47 18:43 Troponin I < 0.012 TSH 3.40 Nasal Screen MRSA (PCR) Not detected [facility] Medical History (Updated 04/14/25 @ 18:16 by Thalia Neely MD) History of cardioversion HLD (hyperlipidemia) Atrial fibrillation with rapid ventricular response Surgical History S/P ablation of atrial fibrillation Family History (Updated 04/14/25 @ 18:17 by Thalia Neely MD) Mother H/O aortic valve replacement with porcine valve Social History (Updated 04/14/25 @ 18:18 by Thalia Neely MD) household members: spouse Smoking Status: Never smoker alcohol intake: never Discharge Plan Discharge Plan Patient Disposition: Home Nursing Discharge Comment: Follow up with your field horticultural specialty grower next week Discharge orders & Medications Prescriptions: Continued atorvastatin 20 mg tablet 20 mg PO DAILY dabigatran etexilate 150 mg capsule 150 mg PO .qd Changed sotalol 80 mg tablet 40 mg PO Q12H Qty: 30 0RF Diet/Activity/Treatments Diet: Low-cholesterol Visit Report/Discharge Packet Stand Alone Forms: Patient Portal/API, Stroke Signs & Symptoms
--- NOTE | 2025-04-15 15:33 | PC.NURSE ---
Discharge order received. IV, telemetry removed. No medications present in pt drawer. Reviewed discharge instructions with pt and visitor. All pt belongings sent with pt and visitor. Pt wheeled to exit with hospital staff.
--- NOTE | 2025-04-15 16:02 | CM.DANOTE ---
DCP Assessment note pt is a 69yo M admitted with afib. per provider, if converts likely will dc today. per RN, pt converted at 1420. ambulating indep. likely no needs. COMMUNITY AFFAIRS DIRECTOR introduced self and role. pt lives in [place] with life partner Valente. indep/drives at baseline. questions about bill. COMMUNITY AFFAIRS DIRECTOR updated pt that we won't know for awhile. expressed understanding. questions about getting his records to [employer] [facility] at [facility]- updated pt on med record sharing process. pt denied other DCP/CM needs or questions at this time P: home today with partner and OP f/u. no CM needs at this time. will continue to follow as needed for DCP coordination ALEE Conner Discharge Planning/Care Management CM Discharge Assessment Start: 04/14/25 18:42 Freq: Status: Discharge Protocol: Document 04/15/25 16:01 (Rec: 04/15/25 16:02 [id number]) Discharge Planning Assessment Assigned Discharge ALEE Murphy Supervisor [employer] Provider [facility] DPOA/Assigned Valente, partner Designee Name Contact Information [phone] Advance Directives? Yes Advance Directives No on File History Provided By Patient,Family Member Prior Living House Arrangements Household Members spouse Type of Drives own vehicle transporation used prior to admit Independent with ADL Yes 's Is patient alert and Yes oriented? Discharge Plan Home Referrals Initiated None needed Review Status In Process Please Provide Date 04/15/25 Initial DC Assessment Was Performed Next Review Type Continued Stay Review
== END 2025-04-15 15:41 | disposition home or self-care (01) | DRG 310 ==
LOC: ED 17:46 → AC 17:49 → ICU 17:54
PROVIDERS: Admitting Provider Family Medicine; Emergency Provider Family Medicine; Referring Provider Family Medicine; Visit Provider Family Medicine
DX: I48.91 Unspecified atrial fibrillation (principal); E78.5 Hyperlipidemia, unspecified; Z79.01 Long term (current) use of anticoagulants
CPT/HCPCS: 36415; 71045; 71275; 80053; 82550; 83605; 83690; 83735; 83880; 84443; 84484; 85025; 85610; 85730; 87797; 93005; 96365; 96375; 99284; C8929; Q9957; Q9967